=== PATIENT | female | born 1940 | race Caucasian/White ===

== ENCOUNTER → 2018-02-14 | Outpatient (CLI) | payer MEDICARE ==
[~2018-02-14] MED LIST: ACET325T14 PO; CARV6.2512 PO; CELE100C PO; CHOL500045 PO; CYCL-259 PO; FLUT1DIS3 INH; IBUP200C8; LEVA15HF4 INH; OLME20TA17; OLME40TA12 PO; PANT40TA3 PO; ROSU10TA; ROSU5TAB PO; UBID100C24 PO
[2018-02-14 10:53] LABS: BASOPHILS # (AUTO) 0.03 x10^3/uL (0-0.1); BASOPHILS % (AUTO) 1 % (0-1); EOSINOPHILS # (AUTO) 0.28 x10^3/uL (0-0.4); EOSINOPHILS % (AUTO) 5 % (1-7); LYMPHOCYTES # (AUTO) 0.93 x10^3/uL (1-3.4); LYMPHOCYTES % (AUTO) 17 % (22-44); MD NO; MEAN CORPUSCULAR HEMOGLOBIN 30.6 pg (27.0-34.8); MEAN CORPUSCULAR HGB CONC 33.5 g/dL (32.4-35.8); MEAN CORPUSCULAR VOLUME 91.4 fL (80-100); MEAN PLATELET VOLUME 8.3 fL (7.4-10.4); MONOCYTES # (AUTO) 0.53 x10^3/uL (0.2-0.8); MONOCYTES % (AUTO) 10 % (2-9); NEUTROPHILS # (AUTO) 3.87 x10^3/uL (1.8-6.8); NEUTROPHILS % (AUTO) 69 % (42-75); PLATELET COUNT 348 x10^3/uL (130-400); RED BLOOD COUNT 4.21 x10^6/uL (3.82-5.3); RED CELL DISTRIBUTION WIDTH 14.3 % (9.6-15.2)
[2018-02-14 10:55] LABS: MICROSCOPIC NOT IND
[2018-02-14 11:01] LABS: CULTURE INDICATED? NO
[2018-02-14 11:05] LABS: ALBUMIN 3.9 g/dL (3.4-5.0); ANION GAP 6 mmol/L (5-15); CALCIUM 8.8 mg/dL (8.5-10.1); CHLORIDE 103 mmol/L (98-107)
[2018-02-14 11:09] LABS: ALANINE AMINOTRANSFERASE 26 U/L (12-78); ALKALINE PHOSPHATASE 67 U/L (45-117); BILIRUBIN,TOTAL 0.8 mg/dL (0.2-1.0); CREATININE 0.77 mg/dL (0.55-1.02); TOTAL PROTEIN 7.2 g/dL (6.4-8.2)
== END | disposition home or self-care (01) ==
LOC: STAR 09:28
PROVIDERS: ATTEND Orthopaedic Surgery
DX: Z01.818 Encounter for other preprocedural examination (principal); I44.7 Left bundle-branch block, unspecified; R00.1 Bradycardia, unspecified; M16.11 Unilateral primary osteoarthritis, right hip
CPT/HCPCS: 36415; 80053; 81003; 85025; 87081; 93005

== ENCOUNTER → 2019-05-05 | Outpatient (CLI) | payer MEDICARE ==
[~2019-05-05] MED LIST changes: +ASPI-496 PO; +CETI10TA26 PO; +HYDR-3341 PO; +LOSA25TA25 PO; +LOSA50TA14 PO; +METO25TA91 PO; +ONDA4TAB7 PO; +OXYC5TAB3 PO; -ROSU10TA; +ROSU10TA2; +SPIR25TA5 PO; +UMEC1DIS INH
[2019-05-05 11:57] LABS: BASOPHILS # (AUTO) 0.03 x10^3/uL (0-0.1); BASOPHILS % (AUTO) 1 % (0-1); EOSINOPHILS # (AUTO) 0.29 x10^3/uL (0-0.4); EOSINOPHILS % (AUTO) 5 % (1-7); LYMPHOCYTES # (AUTO) 1.06 x10^3/uL (1-3.4); LYMPHOCYTES % (AUTO) 18 % (22-44); MD NO; MEAN CORPUSCULAR HEMOGLOBIN 31.1 pg (27.0-34.8); MEAN CORPUSCULAR HGB CONC 33.1 g/dL (32.4-35.8); MEAN CORPUSCULAR VOLUME 94.1 fL (80-100); MEAN PLATELET VOLUME 8.2 fL (7.4-10.4); MONOCYTES # (AUTO) 0.73 x10^3/uL (0.2-0.8); MONOCYTES % (AUTO) 12 % (2-9); NEUTROPHILS # (AUTO) 3.78 x10^3/uL (1.8-6.8); NEUTROPHILS % (AUTO) 64 % (42-75); PLATELET COUNT 328 x10^3/uL (130-400); RED BLOOD COUNT 4.41 x10^6/uL (3.82-5.3); RED CELL DISTRIBUTION WIDTH 14.1 % (9.6-15.2)
[2019-05-05 12:07] LABS: ALANINE AMINOTRANSFERASE 17 U/L (12-78); ALBUMIN 3.8 g/dL (3.4-5.0); ANION GAP 6 mmol/L (5-15); CALCIUM 8.9 mg/dL (8.5-10.1); CHLORIDE 106 mmol/L (98-107); CREATININE 0.91 mg/dL (0.55-1.02)
[2019-05-05 12:09] LABS: ALKALINE PHOSPHATASE 71 U/L (45-117); BILIRUBIN,TOTAL 0.7 mg/dL (0.2-1.0); TOTAL PROTEIN 7.3 g/dL (6.4-8.2)
== END | disposition home or self-care (01) ==
LOC: STAR 10:43
PROVIDERS: ATTEND Orthopaedic Surgery
DX: Z01.818 Encounter for other preprocedural examination (principal)
CPT/HCPCS: 36415; 80053; 85025; 87081; 93005

== ENCOUNTER 2019-05-12 09:53 | Observation (INO) | payer MEDICARE ==
[~2019-05-12] VITALS: Ht 165.1 cm; Wt 84.7 kg
[~2019-05-12 09:53] MED LIST changes: +EPINEPHRINE 1 MG/ML, 1ML ONE; +KETOROLAC 60 MG/2 ML ONE; +ROPIvacaine/PF 0.2%, 20 ML ONE; +SODIUM CHLORIDE 0.9% 50 ML ONE; +TRANEXAMIC ACID 100 MG/ML, 10ML ONE
[2019-05-12] MEDS ORDERED: GABAPENTIN 300 MG CAPSULE PO ONE (10:30)
[2019-05-12] MEDS ORDERED: ACETAMINOPHEN 500 MG TABLET PO ONE (10:30)
[2019-05-12] MEDS ORDERED: LIDOCAINE-MPF 1%, 2ML INFIL ONE (10:30)
[2019-05-12] MEDS: LACTATED RINGERS 1,000 ML IV SCH ×2 (10:31→10:46)
[2019-05-12 10:35] VITALS: BP 143/86
[2019-05-12] MEDS ORDERED: MIDAZOLAM 1 MG/ML, 2ML ONE (11:28)
[2019-05-12] MEDS ORDERED: FENTANYL PF 250 MCG/5ML ONE (11:28)
[2019-05-12] MEDS ORDERED: DEXAMETHASONE 4 MG/ML, 1ML ONE ×2 (11:29→12:00)
[2019-05-12] MEDS ORDERED: PROPOFOL 10 MG/ML, 20ML ONE (11:29)
[2019-05-12] MEDS ORDERED: CEFAZOLIN 1,000 MG ONE ×2 (11:29→12:00)
[2019-05-12] MEDS ORDERED: ROCURONIUM 10MG/ML,5ML ONE (11:29)
[2019-05-12] MEDS ORDERED: SUCCINYLCHOLINE 20 MG/ML, 10ML ONE (11:29)
[2019-05-12] MEDS ORDERED: ONDANSETRON 2MG/ML, 2ML ONE ×2 (12:00→13:07)
[2019-05-12] MEDS ORDERED: EPHEDRINE 50 MG/ML, 1ML ONE (12:00)
[2019-05-12] MEDS ORDERED: LABETALOL 5MG/ML, 20ML IV PRN (12:30)
[2019-05-12] MEDS ORDERED: EPHEDRINE 50 MG/ML, 1ML IVPush PRN (12:30)
[2019-05-12] MEDS ORDERED: HYDROmorphone 2 MG/ML, 1ML IVPush PRN (12:30)
[2019-05-12] MEDS ORDERED: DIAZEPAM 5 MG/ML, 2ML IVPush PRN (12:30)
[2019-05-12] MEDS ORDERED: PROMETHAZINE 25 MG/ML, 1ML IV PRN (12:30)
[2019-05-12] MEDS ORDERED: ONDANSETRON ODT 8 MG PO PRN (12:30)
[2019-05-12] MEDS ORDERED: OXYcodone 5 MG/5 ML ORAL.SOL UDC PO PRN (12:30)
[2019-05-12] MEDS ORDERED: ONDANSETRON 2MG/ML, 2ML IV PRN ×2 (12:30→14:00)
[2019-05-12] MEDS ORDERED: MIDAZOLAM 1 MG/ML, 2ML IV PRN (12:30)
[2019-05-12] MEDS ORDERED: HALOPERIDOL 5 MG/ML IV PRN (12:30)
[2019-05-12] MEDS ORDERED: ALBUTEROL SULFATE 2.5 MG/3 ML NPPB PRN (12:30)
[2019-05-12] MEDS ORDERED: MEPERIDINE/PF 25MG/ML,1ML IVPush PRN (12:30)
[2019-05-12] MEDS ORDERED: hydrALAzine 20 MG/ML, 1ML IV PRN (12:30)
[2019-05-12] MEDS ORDERED: PROMETHAZINE 12.5 MG SUPP PR PRN ×2 (12:30→14:00)
[2019-05-12] MEDS ORDERED: FENTANYL PF 100 MCG/2ML ONE ×2 (12:44→13:53)
[2019-05-12] MEDS ORDERED: SUGAMMADEX 200 MG/2 ML IVPush ONE (13:03)
[2019-05-12] MEDS: FENTANYL PF 100 MCG/2ML IV PRN ×2 (13:51→14:15)
[2019-05-12] MEDS ORDERED: OXYcodone 5 MG/5 ML ORAL.SOL UDC ONE (13:53)
[2019-05-12] MEDS ORDERED: MEPERIDINE/PF 25MG/ML,1ML ONE (13:54)
[2019-05-12] MEDS ORDERED: DIPHENHYDRAMINE 25 MG CAPSULE PO PRN (14:00)
[2019-05-12] MEDS ORDERED: ONDANSETRON 4 MG TABLET PO PRN (14:00)
[2019-05-12] MEDS: ACETAMINOPHEN 500 MG TABLET PO SCH ×2 (14:00→20:45)
[2019-05-12] MEDS ORDERED: MAGNESIUM HYDROXIDE 8%, 30ML UDC PO PRN (14:00)
[2019-05-12] MEDS ORDERED: DIAZEPAM 5 MG TABLET PO PRN (14:00)
[2019-05-12] MEDS ORDERED: ZOLPIDEM 5MG TABLET PO PRN (14:00)
[2019-05-12] MEDS ORDERED: ALUMINUM/MAG/SIMETHICONE 30 ML UDC PO PRN (14:00)
[2019-05-12] MEDS ORDERED: SENNA/DOCUSATE TABLET PO PRN (14:00)
[2019-05-12] MEDS ORDERED: CYCLOBENZAPRINE 10 MG TABLET PO PRN (14:00)
[2019-05-12] MEDS ORDERED: TEMPLATE NON-FORMULARY MED. (Levalbuterol Tartrate** (Xopenex Hfa**) 2 PUFF) INH PRN (14:00)
[2019-05-12] MEDS ORDERED: OXYcodone IR 5MG TABLET PO PRN (14:00)
[2019-05-12] MEDS ORDERED: BISACODYL 10 MG SUPP PR PRN (14:00)
[2019-05-12] MEDS ORDERED: PSYLLIUM PACKET PO PRN (14:00)
[2019-05-12] MEDS ORDERED: POLYETHYLENE GLYCOL 17 GM PACKET PO PRN (14:00)
[2019-05-12] MEDS ORDERED: HYDROmorphone 1 MG/ML, 1ML INJ IVPush PRN (14:00)
[2019-05-12] MEDS ORDERED: TRANEXAMIC ACID 1,000 MG in SODIUM CHLORIDE 0.9% 100 ML IVPB ONE (14:15)
[2019-05-12 15:31] VITALS: BP 157/87
[2019-05-12] MEDS: D5%-0.45% NACL 1,000 ML IV SCH (15:32)
[2019-05-12] MEDS: FERROUS SULFATE 325 MG TABLET PO SCH (17:27)
[2019-05-12] MEDS: CALCIUM/VITAMIN D3 250-125 TABLET PO SCH (17:27)
[2019-05-12] MEDS: ASPIRIN 81 MG TABLET EC PO SCH (17:27)
[2019-05-12 19:43] VITALS: BP 119/74
[2019-05-12] MEDS: DOCUSATE 100 MG CAPSULE PO SCH (20:45)
[2019-05-12] MEDS: CEFAZOLIN PMX 2GM/50ML 50 ML IVPB SCH (20:47)
[2019-05-12] MEDS ORDERED: ATORVASTATIN 20 MG TABLET PO SCH (21:00)
[2019-05-12] MEDS ORDERED: METOPROLOL SUCCINATE 25 MG TAB.ER.24H PO SCH (21:00)
[2019-05-12] MEDS ORDERED: LOSARTAN 25MG TABLET PO SCH (21:00)
[2019-05-12] MEDS: KETOROLAC 30 MG/1 ML IV SCH (22:32)
[2019-05-13 00:13] VITALS: BP 96/62
[2019-05-13] MEDS: ACETAMINOPHEN 500 MG TABLET PO SCH ×2 (02:19→08:02)
[2019-05-13] MEDS: D5%-0.45% NACL 1,000 ML IV SCH (03:02)
[2019-05-13] MEDS: CEFAZOLIN PMX 2GM/50ML 50 ML IVPB SCH (04:07)
[2019-05-13 04:32] VITALS: BP 98/64
[2019-05-13] MEDS ORDERED: DEXAMETHASONE 4 MG/ML, 1ML IVPush ONE (06:00)
[2019-05-13] MEDS: KETOROLAC 30 MG/1 ML IV SCH (06:34)
[2019-05-13] MEDS: ASPIRIN 81 MG TABLET EC PO SCH (06:34)
[2019-05-13 06:53] VITALS: BP 92/58
[2019-05-13] MEDS ORDERED: PANTOPROZOLE 40MG TABLET PO SCH (07:00)
[2019-05-13] MEDS ORDERED: SODIUM CHLORIDE 0.9%, 500ML IVBOLUS ONE (07:30)
[2019-05-13] MEDS: CALCIUM/VITAMIN D3 250-125 TABLET PO SCH (08:02)
[2019-05-13] MEDS: FERROUS SULFATE 325 MG TABLET PO SCH (08:02)
[2019-05-13] MEDS: DOCUSATE 100 MG CAPSULE PO SCH (08:02)
[2019-05-13] MEDS ORDERED: TEMPLATE NON-FORMULARY MED. (Fluticasone/Salmeterol** (Advair 250-50 Diskus**) 1 PUFF) INH SCH (09:00)
[2019-05-13] MEDS ORDERED: ASCORBIC ACID 500 MG TABLET PO SCH (09:00)
[2019-05-13] MEDS ORDERED: LOSARTAN 50MG TABLET PO SCH (09:00)
[2019-05-13] MEDS ORDERED: SPIRONOLACTONE 25 MG TABLET PO SCH (09:00)
[2019-05-13] MEDS ORDERED: MULTIVITAMINS/MINERALS TABLET PO SCH (09:00)
== END 2019-05-13 12:09 | disposition home or self-care (01) ==
LOC: ORIP 09:53 → INTOOBSV 09:53 → 4NE 15:38 → DCLOUNGE 05-13 11:57
PROVIDERS: ADMIT Orthopaedic Surgery; ATTEND Orthopaedic Surgery
DX: M16.12 Unilateral primary osteoarthritis, left hip (principal); G56.01 Carpal tunnel syndrome, right upper limb; M20.41 Other hammer toe(s) (acquired), right foot; J44.9 Chronic obstructive pulmonary disease, unspecified; E78.5 Hyperlipidemia, unspecified; I10 Essential (primary) hypertension; I25.10 Atherosclerotic heart disease of native coronary artery without angina pectoris; Z79.899 Other long term (current) drug therapy; Z87.891 Personal history of nicotine dependence
CPT/HCPCS: 27130; 36415; 72170; 85014; 85018; 86850; 86900; 96365; 96366; 96375; 96376; 97161; 97165; C1713; C1776; G0378; J0171; J0330; J0690; J1100; J1885; J2175; J2250; J2405; J2704; J2795; J3010; J7040; J7120